=== PATIENT | female | born 1955 | race Caucasian/White ===

== ENCOUNTER 2018-06-14 14:04 | Emergency (ER) | payer MEDICARE, OTHER ==
[~2018-06-14] VITALS: Ht 157.5 cm; Wt 74.2 kg
[~2018-06-14 14:04] MED LIST: ASPI-1046 PO; IBUP-1542 PO; LEVO50TA7 PO; REMI IV; TRAM50TA2 PO; TRAZ-111 PO
[2018-06-14 14:12] VITALS: BP 132/66; PULSE 73; RESP 20; Ht 157.5 cm; Wt 74.2 kg
[2018-06-14] MEDS ORDERED: KETOROLAC 30 MG INJ IM STA (16:23)
[2018-06-14] MEDS ORDERED: FIORICET PO (17:37)
--- NOTE | 2018-06-14 20:11 | ERD ---
ER Documentation Chief Complaint Chief Complaint Complains of severe headache x 2 days HPI 62-year-old female presents for severe headache times 2 days. She does have a history of headaches however she states that the headache is different this time. She states that the pain is sharp, rated 8 out of 10. She took Tylenol Motrin at home without relief. She does have a past medical history of CVA, rheumatoid arthritis, hypothyroidism. Denies nausea or vomiting. Denies chest pain or shortness of breath. ROS All systems reviewed and are negative except as per history of present illness. Medications Home Meds Active Scripts Acetamin/Butalbital/Caffeine* (Fioricet*) [id number] Tab, 1 TAB PO Q6H PRN for PAIN LEVEL 1-5, #30 TAB Prov:JOSE SPARROW DO 06/14/18 Tramadol HCl (Tramadol HCl) 50 Mg Tablet, 50 MG PO Q4 PRN for PAIN, #20 TAB Prov:KAELYN HANDLEY 05/03/15 Reported Medications Infliximab (Remicade) 100 Mg Soln, 100 MG IV Q3-4 WEEKS 05/02/15 Trazodone Hcl* (Trazodone Hcl*) 50 Mg Tablet, 50 MG PO QHS PRN for INSOMNIA, #30 TAB 05/02/15 Levothyroxine Sodium* (Levothyroxine Sodium*) 50 Mcg Tablet, 50 MCG PO BEFORE BREAKFAST, #30 TAB 05/02/15 Ibuprofen* (Ibuprofen*) 600 Mg Tablet, 600 MG PO Q6H PRN for PAIN, TAB 05/02/15 Aspirin* (Aspirin* (EC)) 81 Mg Tablet.dr, 81 MG PO DAILY, TAB 05/02/15 Allergies Allergies: Coded Allergies: codeine (Verified Allergy, Unknown, 05/02/15) PMhx/Soc History of Surgery: No Anesthesia Reaction: No Hx Neurological Disorder: Yes (acute stroke 3 yrs ago; hx of stroke 10 yrs ago) Hx Respiratory Disorders: No Hx Cardiac Disorders: Yes (HTN, ) Hx Psychiatric Problems: No Hx Miscellaneous Medical Probl: Yes (thyriod, arthritis) Hx Alcohol Use: Yes (socially) Hx Substance Use: No Hx Tobacco Use: No Smoking Status: Never smoker Physical Exam Vitals Vital Signs Date Temp Pulse Resp B/P (MAP) Pulse Ox O2 O2 Flow FiO2 Time Delivery Rate 06/14/18 99.2 73 20 132/66 98 14:12 (88) Physical Exam Const: No acute distress Head: Atraumatic, no temporal area tenderness to palpation Eyes: Normal Conjunctiva, pupils equal, round, reactive to light bilaterally ENT: Normal External Ears, bilateral tympanic membrane intact without erythema or bulging noted, Nose and Mouth. No tonsillar swelling or exudate noted Neck: Full range of motion. No meningismus, no bruits noted Resp: Clear to auscultation bilaterally Cardio: Regular rate and rhythm, no murmurs, bilateral radial and dorsalis pedis pulses intact Skin: No petechiae or rashes Ext: No cyanosis, or edema, 5 out of 5 muscular bilateral upper and lower extremities Neur: Awake and alert, bilateral upper and lower extremity sensation intact Psych: Normal Mood and Affect Results 24 hrs Current Medications Medications Dose Sig/[place] Start Time Status Last (Trade) Ordered Route PRN Stop Time Admin Dose Reason Admin Ketorolac 30 mg ONCE STAT 06/14/18 DC 06/14/18 Tromethamine IM 16:23 16:35 (Toradol) 06/14/18 16:24 Procedures/MDM Medical Decision Making: Differential diagnosis includes but not limited to primary headache, subarachnoid hemorrhage, meningitis, temporal arteritis, glaucoma, hypertension, cerebral ischemia, carotid or vertebral arterial dissection, brain tumor. Patient appeared well on physical examination, nontoxic appearing. No history of fever. There is low suspicion for meningitis. Given patient's age and no temporal area tenderness to palpation, low suspicion for temporal arteritis. Patient has no vision changes and pupils are reactive bilaterally, low suspicion for glaucoma. There is also no focal neurologic deficits to suggest a brain tumor. Patient has normal sensation and muscle strength, low suspicion for cerebral ischemia. Given headache is different from the ones patient has had in the past, head CT was done. Head CT was negative. In the ER patient given Toradol Symptoms improved with treatment. Patient given prescription for Fioricet Patient likely has an exacerbation of her primary headache. Patient advised to follow up with PCP in 1-2 days. Patient advised to return to ED for new or worsening symptoms. Patient stable on discharge from the ED. Disclaimer: Inadvertent spelling and grammatical errors are likely due to EHR/dictation software use and do not reflect on the overall quality of patient care. Also, please note that the electronic time recorded on this note does not necessarily reflect the actual time of the patient encounter. Departure Diagnosis: Primary Impression: Headache Condition: Fair Patient Instructions: Self-Care for Headaches Referrals: JONNY SORTO (PCP) Additional Instructions: Llame al doctor MAANA y jus kim SEVERIANO PARA DENTRO DE 1-2 MUNOZ.Dgale a la secretaria que nosotros le instruimos hacer esta severiano.Avise o llame si mclaughlin condicin se empeora antes de la severiano. Regresa aqui si peor o no mejor. JOSE SPARROW DO Jun 14, 2018 20:11
== END 2018-06-14 17:46 | disposition home or self-care (01) ==
LOC: FTE 14:04
DX: R51 Headache (principal); I10 Essential (primary) hypertension; Z79.82 Long term (current) use of aspirin; Z86.73 Personal history of transient ischemic attack (TIA), and cerebral infarction without residual deficits
CPT/HCPCS: 70450; 96372; 99285; J1885

== ENCOUNTER 2019-02-08 08:48 | Emergency (ER) | payer MEDICARE, OTHER ==
[~2019-02-08] VITALS: Ht 162.6 cm; Wt 72.6 kg
[~2019-02-08 08:48] MED LIST changes: +FIORICET PO; +PHEN-537 PO
[2019-02-08 08:54] VITALS: Ht 162.6 cm; Wt 72.6 kg
[2019-02-08 12:16] VITALS: BP 128/76; PULSE 66; RESP 16
== END 2019-02-08 12:17 | disposition home or self-care (01) ==
LOC: FTE 08:48
DX: R39.89 Other symptoms and signs involving the genitourinary system (principal); I10 Essential (primary) hypertension; Z79.82 Long term (current) use of aspirin; Z86.73 Personal history of transient ischemic attack (TIA), and cerebral infarction without residual deficits
CPT/HCPCS: 76856; 81003